=== PATIENT | female | born 1970 | race Caucasian/White ===

== ENCOUNTER → 2024-05-08 16:39 | Outpatient (REF) | payer BC, SELFPAY | LOC: RAD 16:39 | PROVIDERS: ATTENDING PHYSICIAN Physician Assistant; FAMILY PHYSICIAN Internal Medicine Hematology & Oncology | DX: M25.539 Pain in unspecified wrist (principal); M79.643 Pain in unspecified hand | CPT/HCPCS: 73110; 73130 ==